=== PATIENT | female | born 1970 | race Caucasian/White ===

== ENCOUNTER → 2018-07-09 | Outpatient (CLI) | payer OTHER ==
--- NOTE | 2018-07-09 11:00 | MM ---
Reason for exam: screening (asymptomatic). Baseline mammogram. History: Patient is nulliparous. Family history of breast cancer in mother at age 62. Physical Findings: Nurse did not find any significant physical abnormalities on exam. MG Screening Mammo w CAD Bilateral CC and MLO view(s) were taken. There are scattered fibroglandular densities. Questionable nodularities periareolar. These results were verbally communicated with the patient and result sheet given to the patient on 07/09/18. ASSESSMENT: Incomplete: need additional imaging evaluation, BI-RAD 0 RECOMMENDATION: Ultrasound of both breasts. [facility] will attempt to contact patient to return for ultrasound.
--- NOTE | 2018-07-09 11:01 | USB ---
Reason for exam: additional evaluation requested from abnormal screening. History: Patient is nulliparous. Family history of breast cancer in mother at age 62. Physical Findings: Breast exam preformed at baseline screening. US Breast Workup [facility] Technologist: Rebekah Danielle RT (R)(M) Right complete breast ultrasound includes all four quadrants, the retroareolar region and axilla. Finding demonstrates no cystic or solid lesion seen. Left complete breast ultrasound includes all four quadrants, the retroareolar region and axilla. Finding demonstrates no cystic or solid lesion seen. These results were verbally communicated with the patient and result sheet given to the patient on 07/09/18. ASSESSMENT: Benign, BI-RAD 2 RECOMMENDATION: Return to routine screening mammogram schedule for both breasts.
== END | disposition home or self-care (01) ==
LOC: RADMAMWWP 07:27
PROVIDERS: ATTEND Family Medicine
DX: Z12.31 Encounter for screening mammogram for malignant neoplasm of breast (principal); R92.8 Other abnormal and inconclusive findings on diagnostic imaging of breast
CPT/HCPCS: 77067

== ENCOUNTER → 2018-09-23 | Outpatient (CLI) | payer OTHER ==
--- NOTE | 2018-09-23 10:07 | CT ---
EXAMINATION TYPE: CT chest wo con DATE OF EXAM: 09/23/2018 COMPARISON: None HISTORY: Left axillary pain CT DLP: 289.1 mGycm, Automated exposure control for dose reduction was used. CONTRAST: Performed injected with 0 mL of Isovue 300. TECHNIQUE: Axial images were obtained at 5 mm thick sections. Reconstructed images are reviewed on [employer] computer in the coronal plane. FINDINGS: Portion of the thyroid visualized is normal. Bilateral apical scarring appears to be present. There is a 0.4 cm nodule posterior lateral right ape x. Series 4 image 9. Small area of pneumonitis in the anterior right middle lobe. Series 4 image 36 No enlarged mediastinal or hilar adenopathy is evident. The ascending aorta diameter at the level o f the main pulmonary artery is 3.4 cm. The main pulmonary artery diameter at the bifurcation is 2.[address] sections are obtained through the upper abdomen. Right adrenal gland is thickened at 2.1 c m. Attention is paid to the left axilla. Couple of small left axillary lymph nodes are present. No suspi cious masses are identified. IMPRESSIONS: 1. Apical scarring, punctate nodule right apex and small area of pneumonitis right middle lobe. Follo w-up chest CT in 6 months is recommended. 2. Thickened right adrenal gland is nonspecific and measures 2.1 cm. 3. No suspicious abnormality within the left axilla.
== END | disposition home or self-care (01) ==
LOC: RADCTMAIN 07:39
PROVIDERS: ATTEND Family Medicine
DX: J18.1 Lobar pneumonia, unspecified organism (principal); R91.1 Solitary pulmonary nodule; J98.4 Other disorders of lung; M79.629 Pain in unspecified upper arm
CPT/HCPCS: 71250

== ENCOUNTER → 2019-08-06 | Outpatient (CLI) | payer OTHER ==
--- NOTE | 2019-08-10 10:38 | MM ---
Reason for exam: screening (asymptomatic). Last mammogram was performed 1 year and 1 month ago. History: Patient is postmenopausal and is nulliparous. Family history of breast cancer in mother at age 62. Took progesterone for 2 years. Physical Findings: A clinical breast exam by your physician is recommended on an annual basis and results should be correlated with mammographic findings. MG Screening Mammo w CAD Bilateral CC and MLO view(s) were taken. Prior study comparison: July 09, 2018, bilateral MG screening mammo w CAD. The breast tissue is heterogeneously dense. This may lower the sensitivity of mammography. No suspicious abnormality. No significant changes when compared with prior studies. ASSESSMENT: Negative, BI-RAD 1 RECOMMENDATION: Routine screening mammogram of both breasts in 1 year.
== END | disposition home or self-care (01) ==
LOC: RADMAMWWP 07:18
PROVIDERS: ATTEND Family Medicine
DX: Z12.31 Encounter for screening mammogram for malignant neoplasm of breast (principal)
CPT/HCPCS: 77067

== ENCOUNTER → 2019-11-13 | Outpatient (CLI) | payer OTHER ==
--- NOTE | 2019-11-13 08:27 | CT ---
EXAMINATION TYPE: CT chest w con DATE OF EXAM: 11/13/2019 COMPARISON: 09/23/2018 HISTORY: 49-year-old female follow up solitary pulmonary nodule TECHNIQUE: Contiguous axial scanning of the chest after the administration of 100 mL of Isovue 300. Coronal/sagittal reconstructions performed. CT DLP: 170.5mGycm. Automatic exposure control utilized for a dose reduction. FINDINGS: Heart normal size without pericardial effusion. Aortic root is ectatic at 3.7 cm. Ascending aorta borderline ectatic 2.5 cm. There is conventional ar terial vessel branching anatomy. No thoracic lymphadenopathy by CT size criteria. Biapical pleural parenchymal scarring. Mild centrilobular emphysema. Mild diffuse bronchial wall thic kening. Previous groundglass focus anterior right lower lung has resolved. A 5 mm subpleural pulmonary nodule medial right middle lobe with some contiguous strandy scarring is unchanged for just over a year suggesting a benign etiology. Punctate nodularity at the right apex al so remains unchanged. No consolidation or pleural effusion. Markedly enlarged bilateral adrenal glands measuring up to 8.2 x 4.4 cm on the left and 5.6 x 2.3 cm on the right, not significantly changed from 09/23/2018. Bones: Mild degenerative disc disease throughout. IMPRESSION: 1. COPD with mild emphysema. 2. Interval resolution of the previous small groundglass infiltrate right middle lobe. 3. Biapical pleural parenchymal scarring redemonstrated. The punctate right apical nodularity remains unchanged. No acute pulmonary process. 4. Stable marked bilateral adrenal gland enlargement measuring up to 8.2 cm on the left and 5.6 cm on the right. Some differential consideration includes adrenal hyperplasia and granulomatous disease. I ndolent lymphoma is possible but considered less likely given the stability. Further clinical workup as warranted.
== END | disposition home or self-care (01) ==
LOC: RADCTMAIN 06:34
PROVIDERS: ATTEND Family Medicine
DX: J43.9 Emphysema, unspecified (principal); D71 Functional disorders of polymorphonuclear neutrophils; R91.1 Solitary pulmonary nodule
CPT/HCPCS: 71260; Q9967

== ENCOUNTER → 2020-04-04 | Outpatient (CLI) | payer OTHER ==
--- NOTE | 2020-04-04 09:43 | MR ---
EXAMINATION TYPE: MR lumbar spine wo con DATE OF EXAM: 04/04/2020 COMPARISON: None HISTORY: Left Leg Numbness, Lower Back Pain x 4 months TECHNIQUE: Multiplanar, multisequence images of the lumbar spine were acquired. L1-L2: Normal disc appearance without desiccation. No herniation, protrusion or disc bulging. No ca nal stenosis is present. Foramina are patent bilaterally. L2-L3: There is a sizable disc herniation extending posteriorly and eccentric towards the left neural foramen causing anterolateral mass effect on the thecal sac. Mild spinal stenosis. No significant fo raminal encroachment. L3-L4: Posterior broad-based disc bulge somewhat eccentric towards the right causing some right-sided foraminal encroachment, anterolateral mass effect on the thecal sac but no significant spinal stenos is. Facet arthropathy with hypertrophy ligamentum flavum causes some minimal posterior lateral mass e ffect on the thecal sac. L4-L5: Posterior broad-based disc bulge causes mild anterior mass effect on the thecal sac. Facet art hropathy with hypertrophy ligamentum flavum causes some minimal posterior lateral mass effect on the thecal sac. No significant spinal stenosis or foraminal encroachment. L5-S1: Circumferential extension endplate disc complex encroaches on the foramina. No evident spinal stenosis. Facet arthropathy change. Lumbar segments are intact. No paraspinal masses are identified. Conus medullaris has a normal appe arance. There is multilevel spondylosis present, endplate discogenic marrow signal change. Loss of di sc height signal is present at intervertebral levels L2-3, L3-4, L4-5 and L5-S1. Vacuum phenomenon pr esent at L5-S1. Lumbar vertebral bodies show preserved height and alignment. IMPRESSION: Degenerative disc disease as described. Facet arthropathy. Foraminal encroachment as above.
== END | disposition home or self-care (01) ==
LOC: RADMRIMAIN 07:56
PROVIDERS: ATTEND Physician Assistant
DX: M51.16 Intervertebral disc disorders with radiculopathy, lumbar region (principal); M47.26 Other spondylosis with radiculopathy, lumbar region
CPT/HCPCS: 72148

== ENCOUNTER 2021-07-21 11:07 | Emergency (ER) | payer OTHER ==
[2021-07-21 11:42] VITALS: RESP 18
--- NOTE | 2021-07-21 12:46 | CT ---
EXAMINATION TYPE: CT brain lilaine wo con DATE OF EXAM: 07/21/2021 COMPARISON: None HISTORY: Severe SANCHEZ and neck pain post fall CT DLP: 1289.7 mGycm Automated exposure control for dose reduction was used. TECHNIQUE: CT scan of the head and cervical spine are performed without contrast. FINDINGS: Ventricular system is midline without displacement. Orbits are symmetric. Craniocervical junction maintained. There is a partially empty sella turcica. There is mild fullness to the left cer ebellar tentorium. There is loss of the normal cervical lordosis with multilevel hypertrophic and degenerative disc dise ase most marked at levels C3-4 through C7. Multilevel facet arthropathy noted. There is a scoliotic c urvature of the spine with biapical pleural thickening. Paraseptal emphysematous changes are seen is biapical pleural thickening. Spina bifida occulta of C1 posterior elements. There is multilevel facet arthropathy and foraminal encroachment C3-C4 on the right, C4-C5 on the lef t, C5-C6 on the right, and bilaterally at C6-C7. No acute fracture. Report called to referring clinic rony the Emergency Room 12 40 1:00 PM 07/21/2021 IMPRESSION: 1. There is no acute fracture or dislocation evident in the cervical spine. Multilevel hypertrophic c hange of the uncovertebral joints and facets result in foraminal encroachment. 2. There is mild fullness to the left cerebellar tentorium could not exclude a small amount of hemorr celso subdural location adjacent to tentorium recommend stat MRI..
--- NOTE | 2021-07-21 13:47 | ED ---
Headache HPI - General Source: patient, RN notes reviewed Mode of arrival: ambulatory Limitations: no limitations <Boni Davidson - Last Filed: 07/21/21 13:44> <Amrit Monsalve - Last Filed: 07/21/21 19:52> - General Chief Complaint: Headache Stated Complaint: Fall last sat,headache Time Seen by Provider: 07/21/21 11:52 - History of Present Illness Initial Comments: 51-year-old female presents emergency Department with chief complaint of head injury. Patient states she fell outside on Saturday. Patient states that she started having headache spasm the last couple days. Patient states she is concerned as she said shoulder issues. Patient denies any blurred vision, nausea vomiting, focal weakness. Patient states since return to the right. (Boni Davidson) - Related Data Home Medications Medication Instructions Recorded Confirmed Acetaminophen Tab [Tylenol Tab] 1,500 mg PO Q6HR PRN 07/21/21 07/21/21 Albuterol Nebulized [Ventolin 2.5 mg INHALATION RT-Q4H PRN 07/21/21 07/21/21 Nebulized] Albuterol Sulfate [Proair Hfa] 2 puff INHALATION RT-Q6H PRN 07/21/21 07/21/21 Butalb/APAP/Caff 50-325-40Mg 1 tab PO DAILY PRN 07/21/21 07/21/21 [Fioricet 50-325-40] Levothyroxine Sodium [Synthroid] 125 mcg PO DAILY 07/21/21 07/21/21 methocarbamoL [Robaxin] 500 mg PO Q12H PRN 07/21/21 07/21/21 predniSONE 5 mg PO DAILY 07/21/21 07/21/21 Previous Rx's Medication Instructions Recorded Ibuprofen [Motrin] 800 mg PO Q8H PRN #20 tab 07/21/21 Allergies Allergy/AdvReac Type Severity Reaction Status Date / Time Penicillins Allergy Unknown Verified 07/21/21 12:26 Review of Systems ROS Other: All systems not noted in ROS Statement are negative. <Boni Davidson - Last Filed: 07/21/21 13:44> ROS Other: All systems not noted in ROS Statement are negative. <Amrit Monsalve - Last Filed: 07/21/21 19:52> ROS Statement: Those systems with pertinent positive or pertinent negative responses have been documented in the HPI. Past Medical History Past Medical History: Asthma, Thyroid Disorder Additional Past Medical History / Comment(s): adrenal issue History of Any Multi-Drug Resistant Organisms: None Reported Past Surgical History: No Surgical Hx Reported Past Psychological History: No Psychological Hx Reported Smoking Status: Current every day smoker Past Alcohol Use History: Occasional Past Drug Use History: Marijuana <Boni Davidson - Last Filed: 07/21/21 13:44> General Exam Limitations: no limitations General appearance: alert, in no apparent distress Head exam: Present: atraumatic, normocephalic, normal inspection Eye exam: Present: normal appearance, PERRL, EOMI. Absent: scleral icterus, conjunctival injection, periorbital swelling ENT exam: Present: normal exam, normal oropharynx, mucous membranes moist Neck exam: Present: normal inspection, tenderness (paraspinal right), full ROM. Absent: meningismus, lymphadenopathy Respiratory exam: Present: normal lung sounds bilaterally. Absent: respiratory distress, wheezes, rales, rhonchi, stridor Cardiovascular Exam: Present: regular rate, normal rhythm, normal heart sounds. Absent: systolic murmur, diastolic murmur, rubs, gallop, clicks Extremities exam: Present: normal inspection, full ROM, normal capillary refill. Absent: tenderness, pedal edema, joint swelling, calf tenderness Neurological exam: Present: alert, oriented X3, CN II-XII intact, reflexes normal. Absent: motor sensory deficit <Boni Davidson - Last Filed: 07/21/21 13:44> Course <Boni Davidson - Last Filed: 07/21/21 13:44> Vital Signs 07/21/21 07/21/21 07/21/21 11:37 13:01 18:19 Temperature 98.6 F Pulse Rate 73 64 80 Respiratory 18 18 18 Rate Blood Pressure 131/67 113/94 103/86 O2 Sat by Pulse 98 98 98 Oximetry - Reevaluation(s) Reevaluation #1: 07/21/21 13:46 Addendum received phone call from radiologist concerning for possible thickened tentorium which could be from recent subdural. (Boni Davidson) Medical Decision Making <Amrit Monsalve - Last Filed: 07/21/21 19:52> - Medical Decision Making D/w Radiologist. They do not see any acute abnormalities on the MRI scan of the brain. It is felt as though the patient is stable for discharge. He follows up with Dr. Griffith from neurology regularly. It is felt as though she should follow-up with him in this regard as well. Motrin 800 will be prescribed. (Amrit Monsalve) Disposition <Boni Davidson - Last Filed: 07/21/21 13:44> Is patient prescribed a controlled substance at d/c from ED?: No Time of Disposition: 19:42 <Amrit Monsalve - Last Filed: 07/21/21 19:52> Clinical Impression: Head injury Disposition: HOME SELF-CARE Condition: Good Prescriptions: Ibuprofen [Motrin] 800 mg PO Q8H PRN #20 tab PRN Reason: Pain Referrals: Brian Justice DO [Primary Care Provider] - 1-2 days Diamond Griffith MD [Medical Doctor] - 1-2 days
[2021-07-21] MEDS ORDERED: ACETAMINOPHEN TAB 500 MG TAB PO STA (18:14)
--- NOTE | 2021-07-21 19:53 | ED ---
Disposition Clinical Impression: Head injury Disposition: HOME SELF-CARE Condition: Good Instructions (If sedation given, give patient instructions): Head Injury (ED) Prescriptions: Ibuprofen [Motrin] 800 mg PO Q8H PRN #20 tab PRN Reason: Pain Is patient prescribed a controlled substance at d/c from ED?: No Referrals: Brian Justice DO [Primary Care Provider] - 1-2 days Diamond Griffith MD [Medical Doctor] - 1-2 days Time of Disposition: 19:53
[2021-07-21 20:04] VITALS: BP 111/84; PULSE 67; TEMP 98.8
--- NOTE | 2021-07-21 22:59 | MR ---
EXAMINATION TYPE: MR brain wo/w con DATE OF EXAM: 07/21/2021 COMPARISON: None HISTORY: Abnormal CT, headache. CONTRAST: Standard multiplanar, multisequence MRI departmental protocol images were obtained without contrast a nd with 6 mL intravenous Gadavist gadolinium contrast. Ventricles have fairly normal size. There is no mass effect nor midline shift. There is no evidence o f intracranial hemorrhage. Sella turcica appears normal. Corpus callosum appears normal. Brainstem is intact. Diffusion images show no evidence of an acute infarct. Porter-white matter structures have charlette rly normal overall signal pattern. There are a few scattered white matter high signal foci on the FLA IR images at the left and right parietal lobes and left posterior frontal lobe that measure up to 5 m m. Total number is approximately 5. The contrast images show normal enhancement of the venous sinuses. There is no pathologic enhancement . Cerebellum appears normal. IMPRESSION: There are a few scattered white matter high signal foci that are nonspecific and could relate to micr ovascular ischemia. Otherwise negative exam. No evidence of cortical infarct. No evidence of intracra nial hemorrhage.
== END 2021-07-21 20:04 | disposition home or self-care (01) ==
LOC: EC 11:07
DX: S09.90XA Unspecified injury of head, initial encounter (principal); J45.909 Unspecified asthma, uncomplicated; E07.9 Disorder of thyroid, unspecified; F17.200 Nicotine dependence, unspecified, uncomplicated; F12.90 Cannabis use, unspecified, uncomplicated; Z88.0 Allergy status to penicillin; W01.0XXA Fall on same level from slipping, tripping and stumbling without subsequent striking against object, initial encounter
CPT/HCPCS: 99284; 72125; 70450; 70553; A9585

== ENCOUNTER → 2022-09-27 | Outpatient (CLI) | payer OTHER ==
--- NOTE | 2022-09-27 11:15 | NM ---
EXAMINATION TYPE: NM hepatobiliary w EF DATE OF EXAM: 09/27/2022 COMPARISON: NONE HISTORY: 52-year-old female R10.9, abdominal pain TECHNIQUE: After the intravenous administration of 4.4 mCi Tc 99m Mebrofenin hepatobiliary scintigrap hy is performed. Immediate images post injection. FINDINGS: There is satisfactory initial accumulation of tracer by the liver. The gallbladder is visualized wit hin 6 minutes. The small bowel activity is noted after 60 minutes following Ensure administration. At one hour 8 ounces of oral ensure plus is given to mimic CCK and gallbladder ejection fraction is c alculated at 84 %, elevated above the expected range (35-80%). IMPRESSION: 1. No scintigraphic evidence for acute/chronic cholecystitis or biliary dyskinesia. 2. Slightly elevated gallbladder ejection fraction at 84% may be seen with gallbladder hyperkinesis.
== END | disposition home or self-care (01) ==
LOC: RADNMMAIN 06:37
PROVIDERS: ATTEND Family Medicine
DX: R10.9 Unspecified abdominal pain (principal); K83.8 Other specified diseases of biliary tract; K82.8 Other specified diseases of gallbladder
CPT/HCPCS: 78226; A9537

== ENCOUNTER → 2023-05-13 | Outpatient (CLI) | payer OTHER ==
--- NOTE | 2023-05-13 08:51 | CT ---
EXAMINATION TYPE: CT chest w con DATE OF EXAM: 05/13/2023 COMPARISON: 11/13/2019 HISTORY: lung nodule CT DLP: 176.9 mGycm Automated exposure control for dose reduction was used. CONTRAST: CT scan of the chest is performed with IV Contrast, patient injected with 100 mL of Isovue 300. FINDINGS: LUNGS: There is biapical scarring. Mild emphysematous change noted. No distinct pulmonary nodule appr eciated at this time. No evidence for infiltrate, volume loss or effusion. There is no pleural effusi on or pneumothorax seen. The tracheobronchial tree is patent. MEDIASTINUM: There are no greater than 1 cm hilar or mediastinal lymph nodes. No pericardial effusi on is seen. Thoracic aorta is of normal caliber. The heart is not enlarged. UPPER ABDOMEN: Stable marked bilateral adrenal gland enlargement measuring up to 8.1 cm on the left and 5.5 cm on the right. Differential diagnostic possibilities include adrenal hyperplasia and granul omatous disease. Indolent lymphoma is possible but considered less likely given the stability. Furthe r clinical workup as warranted. OTHER: No additional significant abnormality is seen. IMPRESSION: 1.There is biapical scarring. Mild emphysematous change noted. No distinct pulmonary nodule appreciat ed at this time. No evidence for infiltrate, volume loss or effusion. 2. Persistent bilateral adrenal gland enlargement as discussed above.
== END | disposition home or self-care (01) ==
LOC: RADCTMAIN 06:51
PROVIDERS: ATTEND Family Medicine
DX: J43.9 Emphysema, unspecified (principal); J98.4 Other disorders of lung; E27.8 Other specified disorders of adrenal gland; R91.1 Solitary pulmonary nodule
CPT/HCPCS: 71260; Q9967

== ENCOUNTER → 2023-05-29 | Day surgery (SDC) | payer OTHER ==
[2023-05-27 15:47] VITALS: BMI 23.0
--- NOTE | 2023-05-28 13:51 | P.HPOR ---
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 She has had carpal tunnel steroid injections that have provided temporary relief and has also tried wrist bracing. She denies any injury on this right side. She also complains of pain at the base of the thumb with pinching and grasping. Physical Examination: RUE: AIN/PIN/Radial/Ulnar/Median motor intact. Radial/Ulnar/Median SILT. 2+/4 Radial/Ulnar pulses palpated. 5/5 APB, 5/5 FDI. Negative Finkelsteins, positive CMC grind, positive Durkan's compression. Positive tinels at medial elbow. Wrist F/E 60/60. Imaging: X-Rays of the right hand 3V taken in office today demonstrates severe thumb CMC arthritis, severe DIP joint arthritis in all digits, severe radiolunate arthritis. EMG/NCV: Performed on 04/22/23 demonstrates moderate bilateral carpal tunnel syndrome, bilateral cubital tunnel syndrome. Impression: 1.) Right carpal tunnel syndrome 2.) Right cubital tunnel syndrome 3.) Right severe thumb CMC arthritis 4.) Right severe radiocarpal arthritis Plan: Diagnosis and treatment options were discussed with the patient. She wishes to mainly address the numbness/weakness in the hand initially and wishes to continue to observe her thumb CMC arthritis which I am agreeable with. She has failed conservative treatment for her symptoms and would like to pursue surgical intervention. Risks and benefits of surgery including bleeding, infection, damage to surrounding tissue, need for further surgery, possible need to convert to open procedure, residual numbness were discussed and the patient wished to go forward with surgery. She is scheduled for a right endoscopic vs open carpal tunnel release and a right open cubital tunnel release. She is self employed at states she is able to create her own schedule but I estimate 4 to 6 weeks of left handed work until she feels her strength is strong enough to begin using it for the detailed car work she does. The patient was agreeable with this plan. PCP clearance is requested. CC: Brian Souphis, DDiamond Winchester M.D., DO Orthopedic Hand/Upper Extremity Surgeon Past Medical History Past Medical History: Asthma, Osteoarthritis (OA), Thyroid Disorder Additional Past Medical History / Comment(s): Adrenal issue, gallbladder problems/bile gastritis, varicose vein, migraines. History of Any Multi-Drug Resistant Organisms: None Reported Past Surgical History: No Surgical Hx Reported Additional Past Surgical History / Comment(s): Colonoscopy. Past Anesthesia/Blood Transfusion Reactions: No Reported Reaction Additional Past Anesthesia/Blood Transfusion Reaction / Comment(s): Mother slow to wake up. Past Psychological History: No Psychological Hx Reported Smoking Status: Current every day smoker Past Alcohol Use History: Occasional Additional Past Alcohol Use History / Comment(s): Smokes 3/4 ppd, started at age 15 or 16. Past Drug Use History: Marijuana Additional Drug Use History / Comment(s): Daily Marijuana use. Aware no use 24 hrs prior to procedure. - Past Family History Mother Family Medical History: Cancer Additional Family Medical History / Comment(s): Pancreatic cancer, breast cancer. Medications and Allergies Home Medications Medication Instructions Recorded Confirmed Type Acetaminophen Tab [Tylenol Tab] 500 - 1,000 mg PO Q6HR PRN 07/21/21 05/27/23 History Albuterol Nebulized [Ventolin 2.5 mg INHALATION Q4H PRN 07/21/21 05/27/23 History Nebulized] Butalb/APAP/Caff 50-325-40Mg 1 tab PO DAILY PRN 07/21/21 05/27/23 History [Fioricet 50-325-40] Levothyroxine Sodium [Synthroid] 125 mcg PO QAM 07/21/21 05/27/23 History methocarbamoL [Robaxin] 500 mg PO Q12H PRN 07/21/21 05/27/23 History predniSONE 5 mg PO QAM 07/21/21 05/27/23 History Advair (Unknown Dose) 1 puff INHALATION BID 05/27/23 05/27/23 History Albuterol Inhaler [Ventolin Hfa 1 - 2 puff INHALATION Q6H PRN 05/27/23 05/27/23 History Inhaler] Cholestyramine (Unknown Dose) 1 tab PO HS 05/27/23 05/27/23 History Allergies Allergy/AdvReac Type Severity Reaction Status Date / Time acetaminophen [From Vicodin] Allergy Itching Verified 05/27/23 15:24 hydrocodone [From Vicodin] Allergy Itching Verified 05/27/23 15:24 Penicillins Allergy Unknown Verified 05/27/23 15:23 opiods AdvReac Unknown Uncoded 05/27/23 15:24 Physical Examination Osteopathic Statement: *. No significant issues noted on an osteopathic structural exam other than those noted in the History and Physical/Consult.
[~2023-05-29] MED LIST: BUPIVACAINE (PF) 0.5% 30 ML VIAL SQ ONE; HYDROCORTISONE SUCCINATE 100 MG/2 ML VIAL IVP ONE; KETOROLAC 15 MG/ML 1 ML VIAL ONE; LACTATED RINGERS 1,000 ML IV ONE; LACTATED RINGERS 1,000 ML IV SCH; LIDOCAINE 1% (10MG/ML) FOR IV START INTRADERMA PRN; LIDOCAINE 2% INJ 20 MG/ML (2 ML VIAL) ONE; MIDAZOLAM 2 MG/2 ML VIAL ONE; ONDANSETRON 4 MG/2 ML VIAL IVP ONE; PROPOFOL 10 MG/ML 20 ML VIAL IV ONE; fentaNYL (PF) 50 MCG/ML 2 ML AMP IV PRN; fentaNYL (PF) 50 MCG/ML 2 ML AMP ONE
--- NOTE | 2023-05-29 17:03 | P.OP ---
Date of Procedure: 05/29/23 Preoperative Diagnosis: 1.) Right carpal tunnel syndrome 2.) Right cubital tunnel syndrome Postoperative Diagnosis: 1.) Right carpal tunnel syndrome 2.) Right cubital tunnel syndrome Procedure(s) Performed: 1.) Right endosscopic carpal tunnel release 2.) Right open cubital tunnel release, in situ. Anesthesia: SHANITA Surgeon: Dimas Virk Artificial Plastic Eye Maker #1: Fermin Posada Estimated Blood Loss (ml): 5 Pathology: none sent Condition: stable Disposition: PACU Description of Procedure: This is a 53 year old female who presented today for a right endoscopic carpal tunnel release and open cubital tunnel release after having failed conservative treatment. Risks and benefits of surgery were discussed with the patient including bleeding, damage to surrounding tissue, infection, need for further surgery as well as risks of anesthesia including pulmonary embolism and even and the patient wished to proceed with surgical intervention. The patient was seen in the pre-operative area by myself. Consent and H&P were completed and updated. The correct extremity was marked in the pre-operative area by myself and all other questions were answered. Operative Narrative: The patient was brought to the operating room by the department of anesthesia. They remained on the portable stretcher and a rolling hand table was brought to the side of the operative extremity. Pre-operative time out was performed indicating the correct patient, procedure and laterality. All in the room agreed. Pre-operative antibiotics were given prior to skin incision. The patient was then drifted off to sleep by the department of anesthesia. A n onsterile tourniquet was then applied to the operative extremity and the right upper extremity was then prepped and draped in normal sterile fashion. The operative extremity was the exsanguinated with an esmarch bandage and the tourniquet was inflated to 250mmHg. 15 blade scalpel was utilized to make a transverse incision on the palmar skin just ulnar to the palmaris longus tendon at the level of the distal wrist crease. Ragnell retractor was then placed radially and blunt dissection was performed to reveal the distal forearm fascia. This was lifted with fine Chinedu pick ups and Littler tenotomy scissors were then used to open the forearm fascia transversely and a double skin hook was then placed. Hamate finder was placed into the carpal tunnel and then sequential sized dilators were inserted followed by the synovial elevator to separate the flexor tenosynovium from the undersurface of the transverse carpal ligament and a washboard texture was felt. The MicroAire endoscopic carpal tunnel release system gun was the then inserted into the carpal tunnel hugging the deep portion of the transverse carpal ligament in line with the base of the ring finger. Transverse fibers of the li gament were directly visualized. Pressure was applied on the palm to reveal the distal extent of the transverse carpal ligament. The blade was then deployed and the distal half of the transverse carpal ligament was released. The scope was then brought distal again and remaining transverse fibers were incised with the blade. The proximal half of the transverse carpal ligament was then divided and again the scope was advanced distal and remaining transverse fibers were incised with the blade. The radial and ulnar leaflets were directly visualized and mobile consistent with complete release. Tenotomy scissors were then utilized to release the remaining distal forearm fascia under direct visualization taking care to preserve the palmar cutaneous branch of the median nerve. Attention was brought to the medial elbow. 15 blade scalpel was used to incise skin in between the medial epicondyle and olecranon in a curvlinear and longitudinal fashion. Blunt dissection was taken down through subcutaneous tissue with tenotomy scissors and branches of the MABCN were identified and protected. Dissection was carried proximally and the ulnar nerve was identified and released from surrounding tissues proximally near the intermuscular septum, the nerve did not appear to be compressed at this location. Dissection was then carried distally and hurst's ligament was released at the medial epicondyle, the nerve appeared compressed at this location. 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 Dissection was then carried out further distal and the superficial and deep fascia of the two heads of the FCU were incised and the ulnar nerve was decompressed with [place] and tenotomy scissors and appeared to be tension free. The elbow was the flexed and extended and the ulnar nerve appeared to be stable in a tension free manner 30cc's of 0.5% bupivacaine was injected into the subcutaneous tissues around the elbow and wrist for an ulnar and median nerve block. Skin closure was performed with interrupted 3-0 Monocryl sutures followed by running 4-0 Monocryl sutures at the elbow and 4-0 Monocryl sutures at the wrist followed by steri strips and a large bulky soft dressing with fluffs, cast padding and an katlyn wrap, tourniquet was then let down and the hand had immediate perfusion. Fermin MCDOWELL was present to assist in major portions of the procedure including protection of vital neurovascular structures. The patient was then woken by the department of anesthesia and transferred to PACU in stable condition. Dimas Virk D.O. Orthopedic Hand/Upper Extremity Surgeon
[2023-05-30 15:44] VITALS: BP 129/79; PULSE 63; RESP 14; TEMP 97.2
== END | disposition home or self-care (01) ==
LOC: OR 12:34
PROVIDERS: ATTEND Orthopaedic Surgery Hand Surgery
DX: G56.01 Carpal tunnel syndrome, right upper limb (principal); G56.21 Lesion of ulnar nerve, right upper limb; M19.90 Unspecified osteoarthritis, unspecified site; J45.909 Unspecified asthma, uncomplicated; E07.9 Disorder of thyroid, unspecified; F17.210 Nicotine dependence, cigarettes, uncomplicated; F12.90 Cannabis use, unspecified, uncomplicated; Z79.51 Long term (current) use of inhaled steroids; Z79.52 Long term (current) use of systemic steroids; Z79.890 Hormone replacement therapy; Z79.899 Other long term (current) drug therapy; Z88.0 Allergy status to penicillin; Z88.5 Allergy status to narcotic agent
CPT/HCPCS: 29848; 64718; J2250; J1720; J2405; J0690; J3010; J1885; J2704; J2001; J0665

== ENCOUNTER 2023-10-09 12:17 | Day surgery (SDC) | payer OTHER ==
--- NOTE | 2023-10-08 10:24 | P.HPOR ---
History of Present Illness H&P Date: 10/08/23 Subjective: This is a 53 year old female that presents today for a post-operative visit after undergoing right endoscopic carpal tunnel release and right open cubital tunnel release on 05/29/23. She is doing very well and has had minimal pain and noticed complete resolution of numbness and tingling. 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 She states her left wrist has been very bothersome and is now wearing a splint at all times for the last year due to pain and swelling and numbness. She has tried antiinflammatory with little to no relief. Physical Examination: RUE: AIN/PIN/Radial/Ulnar/Median motor intact. Radial/Ulnar/Median SILT. 2+/4 Radial/Ulnar pulses palpated. Incisions well healed. Elbow ROM 0-130. LUE: AIN/PIN/Radial/Ulnar/Median motor intact. Radial/Ulnar/Median SILT. 2+/4 Radial/Ulnar pulses palpated. Wrist F/E 60/60 with severe pain at end range of motions. Positive Durkans compression. EMG/NCV: Performed on 04/22/23 demonstrates moderate bilateral carpal tunnel syndrome, bilateral cubital tunnel syndrome. Imaging: X-rays of the left wrist reviewed from 2021 demonstrate chronic SL ligament widening with severe VISI deformity with volar subluxation of the distal carpal row. Severe thumb CMC arthritis. Radiolunate joint appears to be with minimal arthritic changes. No obvious signs of severe degenerative changes at the p roximal capitate. 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 She is doing well in regards to her right side. Treatment options were discussed with the patient regarding her left sided symptoms. We discussed continued conservative treatment vs operative treatment. Due to her persistent and worsening symptoms that are requiring continued bracing while working due to pain she would like to pursue surgical intervention. We discussed she would be a candidate for a proximal row carpectomy if the proximal aspect of the capitate shows no signs of arthritic changes and the radiolunate joint is free of arthritis. We discussed if intraoperative findings were consistent with arthritic changes, either at the proximal pole of capitate or the radiolunate space a total wrist arthrodesis would be performed and she expressed understanding. She is schedule for a left wrist endoscopic vs open carpal tunnel release and a left wrist proximal row carpectomy vs total wrist arthrodesis with bone autograft. We discussed findings of cubital tunnel syndrome on EMG but out of all her symptoms she states this is least bothersome, I explained that a cubital tunnel release could be performed at a later date but I do not recommend doing all 3 procedures at once. Risks and benefits of surgery including bleeding, infection, damage to surrounding tissue, need for further surgery, residual numbness were discussed and the patient wished to go forward with surgery. I anticipate 2 weeks off of work post operatively followed by 6 weeks of right handed work only. The patient is agreeable with this plan. CC: Dr Justice & Dr Nacho Virk DO Orthopedic Hand/Upper Extremity Surgeon Past Medical History Past Medical History: Asthma, Osteoarthritis (OA), Thyroid Disorder Additional Past Medical History / Comment(s): Adrenal issue, gallbladder problems/bile gastritis, varicose vein, migraines. History of Any Multi-Drug Resistant Organisms: None Reported Past Surgical History: Orthopedic Surgery Additional Past Surgical History / Comment(s): Colonoscopy, R wrist and elbow surgery. Past Anesthesia/Blood Transfusion Reactions: Family History of Problems w/ Anesthesia, Postoperative Nausea & Vomiting (PONV) Additional Past Anesthesia/Blood Transfusion Reaction / Comment(s): PATIENT IS SLOW TO WAKE. Mother is slow to wake. Smoking Status: Current every day smoker - Past Family History Mother Family Medical History: Cancer Additional Family Medical History / Comment(s): Pancreatic cancer, breast cancer. Medications and Allergies Home Medications Medication Instructions Recorded Confirmed Type Acetaminophen Tab [Tylenol Tab] 500 - 1,000 mg PO Q6HR PRN 07/21/21 10/02/23 History Albuterol Nebulized [Ventolin 2.5 mg INHALATION Q4H PRN 07/21/21 10/02/23 History Nebulized] Butalb/APAP/Caff 50-325-40Mg 1 tab PO DAILY PRN 07/21/21 10/02/23 History [Fioricet 50-325-40] Levothyroxine Sodium [Synthroid] 125 mcg PO QAM 07/21/21 10/02/23 History methocarbamoL [Robaxin] 500 mg PO Q12H PRN 07/21/21 10/02/23 History predniSONE 5 mg PO QAM 07/21/21 10/02/23 History Albuterol Inhaler [Ventolin Hfa 1 - 2 puff INHALATION Q6H PRN 05/27/23 10/02/23 History Inhaler] Cholestyramine (with Sugar) 4 gm PO DAILY 10/02/23 10/02/23 History [Cholestyramine Packet] Fluticasone Propion/Salmeterol 1 inhalation PO BID 10/02/23 10/02/23 History [Advair 250-50 Diskus] Allergies Allergy/AdvReac Type Severity Reaction Status Date / Time acetaminophen [From Vicodin] Allergy Itching Verified 10/02/23 11:54 hydrocodone [From Vicodin] Allergy Itching Verified 05/29/23 13:19 Penicillins Allergy Unknown Verified 10/02/23 11:54 opiods AdvReac Unknown Uncoded 10/02/23 11:54 Physical Examination Osteopathic Statement: *. No significant issues noted on an osteopathic structural exam other than those noted in the History and Physical/Consult.
[~2023-10-09 12:17] MED LIST changes: -BUPIVACAINE (PF) 0.5% 30 ML VIAL SQ ONE; +DEXAMETHASONE SOD PHOSPHATE 4 MG/ML 1 ML VIAL IV ONE; -HYDROCORTISONE SUCCINATE 100 MG/2 ML VIAL IVP ONE; +HYDROmorphone 0.5 MG/0.5 ML SYRINGE IVP PRN; -KETOROLAC 15 MG/ML 1 ML VIAL ONE; -LACTATED RINGERS 1,000 ML IV ONE; -LACTATED RINGERS 1,000 ML IV SCH; +LIDOCAINE 1% (10MG/ML) FOR IV START INTRADERMA ONE; -LIDOCAINE 1% (10MG/ML) FOR IV START INTRADERMA PRN; -LIDOCAINE 2% INJ 20 MG/ML (2 ML VIAL) ONE; -MIDAZOLAM 2 MG/2 ML VIAL ONE; -PROPOFOL 10 MG/ML 20 ML VIAL IV ONE; -fentaNYL (PF) 50 MCG/ML 2 ML AMP IV PRN; -fentaNYL (PF) 50 MCG/ML 2 ML AMP ONE
[2023-10-09] MEDS: LACTATED RINGERS 1,000 ML IV SCH ×2 (13:14→23:50)
[2023-10-09 13:22] LABS: Glucose,Whole Blood 88 mg/dL (70-110)
[2023-10-09] MEDS ORDERED: methylPREDNISolone SOD SUCCI 125 MG/2 ML VIAL IVP ONE (13:46)
[2023-10-09] MEDS ORDERED: MIDAZOLAM 2 MG/2 ML VIAL IVP ONE (15:25)
[2023-10-09] MEDS ORDERED: PROPOFOL 10 MG/ML 20 ML VIAL IV ONE (15:45)
[2023-10-09] MEDS ORDERED: GLYCOPYRROLATE 0.2 MG/ML 2 ML VIAL ONE (15:45)
[2023-10-09] MEDS ORDERED: fentaNYL (PF) 50 MCG/ML 2 ML AMP ONE (15:45)
[2023-10-09] MEDS ORDERED: ROPIVACAINE 5 MG/ML 30 ML VIAL ONE (15:45)
[2023-10-09] MEDS ORDERED: HYDROmorphone (PF) 1 MG/ML ONE (15:45)
[2023-10-09] MEDS ORDERED: MIDAZOLAM 2 MG/2 ML VIAL ONE (15:45)
[2023-10-09] MEDS ORDERED: SODIUM CHLORIDE 0.9% (PF) 10 ML VIAL ONE (15:45)
[2023-10-09] MEDS ORDERED: PHENYLEPHRINE 10 MG/ML VIAL ONE (15:45)
[2023-10-09] MEDS ORDERED: LIDOCAINE 1% INJ 10MG/ML (20 ML MDV) ONE (15:45)
[2023-10-09] MEDS ORDERED: DEXAMETHASONE SOD PHOSPHATE 4 MG/ML 1 ML VIAL ONE (15:45)
[2023-10-09] MEDS ORDERED: ePHEDrine 50 MG/ML 1 ML VIAL ONE (15:45)
[2023-10-09] MEDS ORDERED: ONDANSETRON 4 MG/2 ML VIAL IVP ONE (19:15)
[2023-10-09] MEDS ORDERED: diphenhydrAMINE 50 MG/ML 1 ML VIAL IVP ONE (19:33)
--- NOTE | 2023-10-09 19:51 | P.OP ---
Date of Procedure: 10/09/23 Preoperative Diagnosis: 1.) Left SLAC wrist arthritis 2.) Left carpal tunnel syndrome Postoperative Diagnosis: 1.) Left SLAC wrist arthritis 2.) Left carpal tunnel syndrome Procedure(s) Performed: 1.) Left total wrist arthrodesis with bone autograft 2.) Left endoscopic carpal tunnel release Implants: Oriental medium curve total wrist arthrodesis plate [facility] Surgeon: Dimas Virk Financial Investment Manager #1: Fermin Posada Estimated Blood Loss (ml): 40 Pathology: none sent Condition: stable Disposition: PACU Description of Procedure: This is a 53 year old female who presents today for a left total wrist arthrodesis vs proximal row carpectomy and left endoscopic carpal tunnel release. Risks and benefits of surgery were discussed with the patient including bleeding, damage to surrounding tissue, infection, need for further surgery as well as risks of anesthesia including pulmonary embolism and even and the patient wished to proceed with surgical intervention. The patient was seen in the pre-operative area by myself. Consent and H&P were completed and updated. The correct extremity was marked in the pre-operative area by myself and all other questions were answered. Operative Narrative: The patient was brought to the operating room by the department of anesthesia. They remained on the portable stretcher and a rolling hand table was brought to the side of the operative extremity. Pre-operative time out was performed indicating the correct patient, procedure and laterality. All in the room agreed. Pre-operative antibiotics were given prior to skin incision. The patient was then drifted off to sleep by the department of anesthesia. A nonsterile tourniquet was then applied to the operative extremity and the left upper extremity was then prepped and draped in normal sterile fashion. The operative extremity was the exsanguinated with an esmarch bandage and the tourniquet was inflated to 250mmHg. 15 blade scalpel was utilized to make a transverse incision on the palmar skin just ulnar to the palmaris longus tendon at the level of the distal wrist crease. Ragnell retractor was then placed radially and blunt dissection was performed to reveal the distal forearm fascia. This was lifted with fine Chinedu pick ups and Littler tenotomy scissors were then used to open the forearm fascia transversely and a double skin hook was then placed. Hamate finder was placed into the carpal tunnel and then sequential sized dilators were inserted followed by the synovial elevator to separate the flexor tenosynovium from the undersurface of the transverse carpal ligament and a washboard texture was felt. The MicroAire endoscopic carpal tunnel release system gun was the then inserted into the carpal tunnel hugging the deep portion of the transverse carpal ligament in line with the base of the ring finger. Transverse fibers of the ligament were directly visualized. Pressure was applied on the palm to reveal the distal extent of the transverse carpal ligament. The blade was then deployed and the distal half of the transverse carpal ligament was released. The scope was then brought distal again and remaining transverse fibers were incised with the blade. The proximal half of the transverse carpal ligament was then divided and again the scope was advanced distal and remaining transverse fibers were incised with the blade. The radial and ulnar leaflets were directly visualized and mobile consistent with complete release. Tenotomy scissors were then utilized to release the remaining distal forearm fascia under direct visualization taking care to preserve the palmar cutaneous branch of the median nerve. Attention was drawn to the dorsal wrist. Longitudinal incision was made centered of the mid portion of the wrist in line with the third metacarpal with a 15 blade scalpel. Blunt dissection was taken down to the proximal portion of the extensor retinaculum and the 3rd dorsal compartment was incised sharply and the EPL tendon was identified and transposed. The 4th dorsal compartment was then subperiosteally elevated from radial to ulnar to make room for the spanning plate. Capsulotomy was performed with an ulnarly based flap to reveal the dorsal carpal bones. There was severe arthritic changes at both the radiolunate articulation and at the proximal pole of the capitate therefore decision to proceed with total wrist arthrodesis was made. Longitudinal traction was applied and using a McGlamory elevator a proximal row carpecty was performed to remove the scaphoid, lunate, and triquetrum. After proximal row was resected the proximal post of the capitate, hamate and the entire surface of the radius was removed of the remaining cartilage joint down to fresh bleeding cancellous bone. The previously removed carpal bones were then denuded of their cartilage and crushed to use at bone autograft. Lisa's tubercule was removed and a currette was used to obtain additional bone autograft through a dorsal window. The joint was then packed with the bone autograft. A Oriental total wrist fusion plate with shallow bend was then chosen to best fit the patients anatomy. The plate was first secured distally to the proximal portion of the third metacarpal shaft with non-locking screws with great purchase. The plate was then fixed proximally to the radial shaft and inserted in compression mode with non-locking screws. The remainder of the screw holes were filled proximally and distally with good compression achieved across the wrist fusion site. A capitate screw was inserted through the plate in locking fashion. Imaging confirmed correct screw lengths and compression across the wrist joint and good plate placement. The wound was then irrigated. Capsular closure was performed with 3-0 Vicryl suture and layered closure was performed with interrupted 4-0 monocryl and a running 4-0 monocryl suture, and steri strips. A short arm plaster splint was applied. Tourniquet was let down and the hand had immediate perfusion. The patient was then woken by the department of anesthesia and transferred to PACU in stable condition. Fermin MCDOWELL was present for the case in its entirety and assisted in major portions of the case and protection of vital neurovascular structures. Dimas Virk D.O. Orthopedic Hand/Upper Extremity Surgeon
[2023-10-09] MEDS ORDERED: ALBUTEROL NEBULIZED 2.5 MG/3 ML INHALATION ONE (20:49)
[2023-10-10 03:33] VITALS: RESP 16
[2023-10-10 08:20] VITALS: BP 110/66; PULSE 78; TEMP 98.5
--- NOTE | 2023-10-10 08:28 | P.PN ---
Subjective Progress Note Date: 10/10/23 Principal diagnosis: Status post Left total wrist arthrodesis with bone autograft, Left endoscopic carpal tunnel release Patient was evaluated at bedside today, she is resting in her hospital bed. She's feeling a lot better today. I was contacted by nursing last night after surgery, she's very nauseous. Patient was admitted as observation. Patient states that the numbness from the block is still present. She's having no pain at this time. She has no chest pain, shortness of breath, nausea vomiting. Objective - Vital Signs Vital signs: Vital Signs Temp 98.5 F 10/10/23 08:00 Pulse 78 10/10/23 08:00 Resp 16 10/10/23 08:00 BP 110/66 10/10/23 08:00 Pulse Ox 96 10/10/23 08:00 FiO2 Intake & Output 10/09/23 10/10/23 10/10/23 18:59 06:59 18:59 Intake Total 2049 360 Output Total 40 Balance 2009 360 Weight 56.8 kg 56.8 kg Intake: IV 2049 Intake, IV Titration 240 Amount Lactated Ringers 1,000 ml 240 @ 20 mls/hr IV .Q24H ANTONIO Rx#:[id number] Oral 120 Output: Estimated Blood Loss 40 - Exam Left upper extremity: Postoperative splint is in good position and condition. Patient is wiggling the fingers no difficulty. Her sensation to light touch set that extremity is still limited due to the preoperative block. Arm splint is also present at this time. Assessment and Plan Assessment: Postoperative day #1 status post left total wrist arthrodesis with bone autograft, left endoscopic carpal tunnel release Plan: Pain control, patient will have Tylenol 3 and Motrin 800 mL as needed Wound care instructions were discussed, this did include showering instructions Patient will be nonweightbearing with the left upper extremity at this time Patient will be discharged home today Time with Patient: Less than 30
--- NOTE | 2023-10-10 08:33 | P.DS ---
Providers Date of admission: 10/09/2023 Expected date of discharge: 10/10/23 Attending physician: Dimas Virk DO [facility] Course: Date of admission: 10/09/2023 Date of discharge: 10/10/2023 Admission diagnosis: Status post left total wrist arthrodesis with bone autograft, left endoscopic carpal tunnel release Discharge diagnosis: Same Attending physician: Dr. Virk Surgical procedures: Left total wrist arthrodesis with bone autograft, Left endoscopic carpal tunnel release Brief history: Patient is a 53-year-old female with a history of left wrist carpal tunnel, left wrist pain, left wrist arthritis due to chronic slack wrist. At this point patient has failed conservative treatment measures and has opted to proceed with a elective left total wrist arthrodesis with bone autograft and left endoscopic carpal tunnel release. Hospital course: Details of patient's surgery can be found in operative report. Patient tolerated the procedure well and was subsequently transported to orthope dic floor. Patient's orthopeidc and medical care was provided daily. Patient was noted to have a relatively uneventful postoperative course. Patient reported satisfactory pain control with oral pain medications by postoperative day 0. Patient showed satisfactory progress with physical therapy. Patient moved steadily through the program and had no difficulty meeting the goals by postoperative day 1. Given patient's otherwise satisfactory course and having met physical therapy goals, plan is to discharge patient [home] on postoperative day 1. Discharge condition/disposition: Patient will be discharged [home] in stable condition. Discharge medications: Instructions are given on resumption of patient's normal daily medications per primary care recommendation, in addition patient will be prescribed Motrin 800, Tylenol 3. Discharge instructions: 1. Wound care instructions were discussed, this included cast instructions, do not remove 2. Nonweightbearing left upper extremity 3. Pain medication as needed 4. Plan for [facility] at [facility] in the next 10-14 days Procedures: 1.) Left total wrist arthrodesis with bone autograft 2.) Left endoscopic carpal tunnel release Patient Condition at Discharge: Good Plan - Discharge Summary Discharge Rx Participant: No New Discharge Prescriptions: New Ibuprofen [Motrin] 800 mg PO Q8H #42 tab Acetaminophen-Codeine 300-30mg [Tylenol w/codeine #3] 2 tab PO Q6H PRN 3 Days #24 tablet PRN Reason: Pain No Action predniSONE 5 mg PO QAM Butalb/APAP/Caff 50-325-40Mg [Fioricet 50-325-40] 1 tab PO DAILY PRN PRN Reason: Migraine Headache Albuterol Nebulized [Ventolin Nebulized] 2.5 mg INHALATION Q4H PRN PRN Reason: Shortness Of Breath Albuterol Inhaler [Ventolin Hfa Inhaler] 1 - 2 puff INHALATION Q6H PRN PRN Reason: Shortness Of Breath Cholestyramine (with Sugar) [Cholestyramine Packet] 4 gm PO DAILY methocarbamoL [Robaxin] 500 mg PO Q12H PRN PRN Reason: Muscle Pain Acetaminophen Tab [Tylenol Tab] 500 - 1,000 mg PO Q6HR PRN PRN Reason: Pain Levothyroxine Sodium [Synthroid] 125 mcg PO QAM Fluticasone Propion/Salmeterol [Advair 250-50 Diskus] 1 inhalation PO BID Discharge Medication List Acetaminophen Tab [Tylenol Tab] 500 - 1,000 mg PO Q6HR PRN 07/21/21 [History] Albuterol Nebulized [Ventolin Nebulized] 2.5 mg INHALATION Q4H PRN 07/21/21 [History] Butalb/APAP/Caff 50-325-40Mg [Fioricet 50-325-40] 1 tab PO DAILY PRN 07/21/21 [History] Levothyroxine Sodium [Synthroid] 125 mcg PO QAM 07/21/21 [History] methocarbamoL [Robaxin] 500 mg PO Q12H PRN 07/21/21 [History] predniSONE 5 mg PO QAM 07/21/21 [History] Albuterol Inhaler [Ventolin Hfa Inhaler] 1 - 2 puff INHALATION Q6H PRN 05/27/23 [History] Cholestyramine (with Sugar) [Cholestyramine Packet] 4 gm PO DAILY 10/02/23 [History] Fluticasone Propion/Salmeterol [Advair 250-50 Diskus] 1 inhalation PO BID 10/02/23 [History] Acetaminophen-Codeine 300-30mg [Tylenol w/codeine #3] 2 tab PO Q6H PRN 3 Days #24 tablet 10/09/23 [Rx] Ibuprofen [Motrin] 800 mg PO Q8H #42 tab 10/09/23 [Rx] Follow up Appointment(s)/Referral(s): Dimas Virk DO [Doctor of Osteopathic Medicine] - 2 Weeks Patient Instructions/Handouts: *Surgery [facility] - (Anesthesia) Discharge Instructions Outpatient Surgery, Carpal Tunnel Surgery (DC) Activity/Diet/Wound Care/Special Instructions: Keep splint clean, dry and intact until follow up appointment. Non-weight bearing operative extremity. Okay to start finger range of motion as soon as possible. Rest, ice and elevate. Motrin 800mg Rx prescribed for pain. contact office tomorrow to make appt Discharge Disposition: HOME SELF-CARE
--- NOTE | 2023-10-10 08:34 | P.PN ---
Progress Note - Text Progress Note Date: 10/10/23 Patient was admitted after surgery for an overnight stay due to nausea. Patient is being discharged this morning.
--- NOTE | 2023-10-10 10:42 | P.ANPRN ---
Procedure Note - Anesthesia - Nerve Block Performed Left Supraclavicular Single Time Out Performed: Yes Date of Procedure: 10/09/23 Procedure Start Time: 15: Procedure Stop Time: 15: Location of Patient: PreOp Indication: Acute Post-Operative Pain, Requested by Surgeon Sedation Type: Sedate with meaningful contact maintained Preparation: Sterile Prep Position: Supine Needle Types: Pajunk Needle Gauge: 21 Ultrasound used to visualize needle placement: Yes Ultrasound used to observe medication spread: Yes Blood Aspirated: No Pain Paresthesia on Injection Noted: No Resistance on Injection: Normal Image Stored and Saved: Yes Events: Uneventful and Well Tolerated (Ropivacaine 0.5% 20 cc plus dexamethasone 4 mg)
== END 2023-10-10 08:52 | disposition home or self-care (01) ==
LOC: OR 12:17 → 4SSUR 18:45 → OR 10-10 08:52
PROVIDERS: ATTEND Orthopaedic Surgery Hand Surgery
DX: G56.23 Lesion of ulnar nerve, bilateral upper limbs (principal); G56.03 Carpal tunnel syndrome, bilateral upper limbs; M19.032 Primary osteoarthritis, left wrist; J45.909 Unspecified asthma, uncomplicated; F17.200 Nicotine dependence, unspecified, uncomplicated; Z79.51 Long term (current) use of inhaled steroids; Z79.899 Other long term (current) drug therapy; Z88.5 Allergy status to narcotic agent; Z88.0 Allergy status to penicillin
CPT/HCPCS: 64415; 29848; C1776; J2250; J1200; J1100; J2930; J2405; J0690; J2001; J3010; J1170; J2795; J2704; J2371

== ENCOUNTER → 2024-06-17 | Outpatient (CLI) | payer OTHER ==
--- NOTE | 2024-06-17 10:35 | CT ---
EXAMINATION TYPE: CT chest w con CT DLP: 169.0 mGycm, Automated exposure control for dose reduction was used. DATE OF EXAM: 06/17/2024 10:23 AM COMPARISON: CT chest 05/13/2023, 11/13/2019, 09/23/2018 CLINICAL INDICATION:Female, 54 years old with history of R91.1 SOLITARY PULMONARY NODULE; [facility], TECHNIQUE: Multiple axial images were obtained through the chest following the administration of 100 cc of Isovue 300. . Coronal and sagittal reformats reviewed. FINDINGS: LUNGS/ PLEURA: No pleural effusion, pneumothorax, focal consolidation. Mild biapical pleural-parenchy mal scarring. Minimal centrilobular emphysematous changes. Minimal linear scarring within the medial aspect of the right middle lobe. No suspicious pulmonary nodule or mass identified. AIRWAY: Patent and unremarkable.. HEART: Size within normal limits. No pericardial effusion. MEDIASTINUM: No evidence of adenopathy. VASCULATURE: No aortic aneurysm. MUSCULOSKELETAL: No acute osseous abnormalities. Mild multilevel degenerative disc disease. SOFT TISSUES/LYMPH NODES: Unremarkable. LOWER NECK: Atrophic appearance of the thyroid gland.. UPPER ABDOMEN: Stable marked enlargement of the bilateral adrenal glands. The right measures up to 5. 4 cm, previously 5.5 cm. The left measures up to 7.8 cm, previously 8.1 cm. Additional subcentimeter focal regions of fat attenuation within both glands. IMPRESSION: 1. Mild biapical scarring with mild emphysematous change redemonstrated. No distinct pulmonary nodule or mass identified again. 2. Persistent bilateral adrenal gland enlargement. Differential includes adrenal hyperplasia versus g ranulomatous disease with indolent lymphoma thought to be less likely due to stability from multiple exams. [facility], , 06/17/2024 10:32 AM
== END | disposition home or self-care (01) ==
LOC: RADCTMAIN 08:01
PROVIDERS: ATTEND Family Medicine
DX: R91.1 Solitary pulmonary nodule
CPT/HCPCS: 71260